=== PATIENT | female | born 1990 | race Caucasian/White ===

== ENCOUNTER → 2018-02-21 | Outpatient (CLI) | payer OTHER ==
[2018-02-21 17:08] LABS: MCH 30.7 pg (26.0-34.0); MCHC 34.3 g/dL (28.0-37.0); NUCLEATED RBCS 0 /100WBC
[2018-02-21 17:10] LABS: ABSOLUTE BASOPHILS 0.1 thou/uL (0.0-0.2); ABSOLUTE EOSINOPHILS 0.2 thou/uL (0.0-0.7); ABSOLUTE LYMPHOCYTES 3.3 thou/uL (0.8-5.3); ABSOLUTE MONOCYTES 0.5 thou/uL (0.0-1.2); ABSOLUTE NEUTROPHILS 2.1 thou/uL (1.6-8.1); BASOPHILS 0.8 %; EOSINOPHILS 2.6 %; HEMATOCRIT 36.4 % (37.0-47.0); HEMOGLOBIN 12.5 gm/dL (12.0-15.0); LYMPHOCYTES 53.5 %; MCV 89.5 fL (80.0-100.0); MONOCYTES 8.7 %; MPV 8.8 fl. (7.2-11.1); PLATELET COUNT* 303 thou/uL (150-400); POLYS 34.4 %; RBC 4.07 mil/uL (4.20-5.00); WBC 6.2 thou/uL (4.0-11.0)
== END ==
LOC: M.LAB 16:45
DX: K92.1 Melena (principal)